=== PATIENT | male | born 2000 | race African-American/Black ===

== ENCOUNTER 2019-02-06 19:14 | Emergency (ER) | payer OTHER ==
--- NOTE | 2019-02-06 20:46 | UC ---
Respiratory Complaint HPI - HPI Summary HPI Summary: Pt presents with c/o sudden onset of nausea and vomiting ~ 1 week ago. Pt reports that he was sleeping and woke up with sudden onset of nausea, left side abdominal pain and vomited X 1 . Pt states he has not been feeling well has pain with inspiratory breath, pain in luq of abdomen, decreased appetite, and continues to vomit at least once a day. Denies injury /trauma to the are, states he is able to keep liquids down but unable to eat food. DAd reports that pt has lost weight and his voice is different from normal. 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 Onset/Duration: Sudden Onset, Lasting Days, Still Present Timing: Constant Severity Initially: Moderate Severity Currently: Moderate Pain Intensity: 4 Aggravating Factors: Deep Breaths Alleviating Factors: Nothing Associated Signs And Symptoms: Positive: Hoarseness - Risk Factors Pulmonary Embolism Risk Factors: Negative Cardiac Risk Factors: Negative Pseudomonas Risk Factors: Negative Tuberculosis Risk Factors: Negative - Allergies/Home Medications Allergies/Adverse Reactions: Allergies Allergy/AdvReac Type Severity Reaction Status Date / Time No Known Allergies Allergy Verified 02/06/19 20:08 Home Medications: Home Medications NK [No Home Medications Reported] 02/06/19 [History Confirmed 02/06/19] PMH/Surg Hx/FS Hx/Imm Hx Previously Healthy: Yes - Surgical History Surgical History: None - Family History Known Family History: Positive: Cardiac Disease - Social History Occupation: Employed Full-time Lives: With Family Alcohol Use: None Substance Use Type: Marijuana Substance Use Comment - Amount & Last Used: 2x daily Smoking Status (MU): Never Smoked Tobacco Have You Smoked in the Last Year: No - Immunization History Vaccination Up to Date: Yes Review of Systems All Other Systems Reviewed And Are Negative: Yes Constitutional: Positive: Negative Skin: Positive: Negative Eyes: Positive: Negative ENT: Positive: Negative Respiratory: Positive: Shortness Of Breath Cardiovascular: Positive: Negative Gastrointestinal: Positive: Abdominal Pain, Vomiting, Nausea Genitourinary: Positive: Negative Motor: Positive: Negative Neurovascular: Positive: Negative Musculoskeletal: Positive: Negative Neurological: Positive: Negative Psychological: Positive: Negative Is Patient Immunocompromised?: No Physical Exam Triage Information Reviewed: Yes Appearance: Ill-Appearing, Pain Distress Vital Signs: Initial Vital Signs Temp 98.5 F 02/06/19 20:01 Pulse 86 02/06/19 20:01 Resp 20 02/06/19 20:01 BP 140/96 02/06/19 20:01 Pulse Ox 100 02/06/19 20:01 Vital Signs Reviewed: Yes Eye Exam: Normal ENT Exam: Normal Dental Exam: Normal Neck exam: Normal Respiratory Exam: Normal Respiratory: Positive: Normal breath sounds Cardiovascular Exam: Normal Abdomen Description: Positive: Other: - c/o pain LUQ, no hernia appreciated Bowel Sounds: Positive: Present Musculoskeletal Exam: Normal Neurological Exam: Normal Psychological Exam: Normal Skin Exam: Normal Respiratory Course/Dx - Course Course Of Treatment: I reviewed my assessment with Dr. Aguliar and asked for him to discuss transfer to higher level of care by ambulance as pt's father refused ambulance initially. Dr. Aguilar requested a POC fingerstick and pt's blood glucose was 416. I discussed this with the pt and his father and pt and father agreed to be transferred to [facility]. Transfer center at [facility] called, I spoke to DENIZ Camacho and she accepted pt for transfer. Pt was directed to [facility]. - Differential Dx/Diagnosis Differential Diagnosis/HQI/PQRI: Other Provider Diagnosis: DKA (diabetic ketoacidoses), Pneumomediastinum Discharge - Sign-Out/Discharge Documenting (check all that apply): Patient Departure All imaging exams completed and their final reports reviewed: No - Discharge Plan Condition: Stable Disposition: TRANS HIGHER LVL OF CARE FAC Patient Education Materials: Diabetic Ketoacidosis (DC), Chest Pain (ED) Referrals: No Primary Care Phys,NOPCP [Primary Care Provider] - Care [facility] [Outside] - Billing Disposition and Condition Condition: STABLE Disposition: Trans Higher Lvl of Care Fac
[2019-02-06 21:23] VITALS: BP 154/87
[2019-02-06] MEDS ORDERED: NS 0.9% 1000 ML** 1,000 ML IV ONE (21:31)
--- NOTE | 2019-02-07 12:37 | UC ---
- Progress Note Progress Note: CXR reviewd. reviwed case w/ Maria Teresa who treated pt. ? pneumomediastinum initially thought to be artifcat by RAD. pt transferred to [facility]. Course/Dx - Diagnoses Provider Diagnoses: DKA (diabetic ketoacidoses), Pneumomediastinum Discharge - Sign-Out/Discharge Documenting (check all that apply): Post-Discharge Follow Up All imaging exams completed and their final reports reviewed: Yes - Discharge Plan Condition: Stable Disposition: TRANS HIGHER LVL OF CARE FAC Patient Education Materials: Chest Pain (ED), Diabetic Ketoacidosis (DC) Referrals: [facility] [Outside] No Primary Care Phys,NOPCP [Primary Care Provider] - - Billing Disposition and Condition Condition: STABLE Disposition: Trans Higher Lvl of Care Fac
== END 2019-02-06 21:45 | disposition short-term general hospital (02) ==
LOC: UCCORT 19:14
DX: E11.10 Type 2 diabetes mellitus with ketoacidosis without coma (principal); J98.2 Interstitial emphysema
CPT/HCPCS: 71046; 99213; G0463

== ENCOUNTER 2019-04-05 02:10 | Emergency (ER) | payer OTHER ==
--- NOTE | 2019-04-05 02:30 | ED ---
Laceration/Wound HPI - HPI Summary HPI Summary: This patient is a 18 year old male presenting to [facility] with a chief complaint of a traumatic right hand injury. Patient was about to jump in the [place] and hit his hand on an unknown object. Patient reports lacerations to right pointer and middle fingers and says he is unable to move his right thumb. Patient admits to ETOH this evening. The patient rates his pain 8/10 in severity. He states a Hx of IDDM. - History of Current Complaint Stated Complaint: "RT HAND INJURY" PER PT Hx Obtained From: Patient Onset Severity: Moderate Current Severity: Moderate Pain Intensity: 8 Pain Scale Used: 0-10 Numeric - Allergy/Home Medications Allergies/Adverse Reactions: Allergies Allergy/AdvReac Type Severity Reaction Status Date / Time No Known Allergies Allergy Verified 02/06/19 20:08 Home Medications: Home Medications Insulin Glargine,Hum.rec.anlog [Basaglar Kwikpen] 14 unit SC DAILY 04/05/19 [ History Confirmed 04/05/19] Insulin Lispro [Admelog] 100 unit SQ TID WITH MEALS PRN 04/05/19 [History Confirmed 04/05/19] PMH/Surg Hx/FS Hx/Imm Hx Endocrine/Hematology History: Reports: Hx Diabetes Cardiovascular History: Denies: Hx Coronary Artery Disease Infectious Disease History: No Infectious Disease History: Denies: Traveled Outside the [place] in Last 30 Days - Family History Known Family History: Positive: Cardiac Disease - Social History Alcohol Use: Occasionally Substance Use Type: Reports: Marijuana Substance Use Comment - Amount & Last Used: 2x daily Smoking Status (MU): Never Smoked Tobacco Have You Smoked in the Last Year: No Review of Systems Positive: Other - Right hand pain Positive: Other - Lacerations to right hand All Other Systems Reviewed And Are Negative: Yes Physical Exam - Summary Physical Exam Summary: VITAL SIGNS: Reviewed. GENERAL: Patient is a well-developed and nourished MALE who is lying comfortable in the stretcher. Patient is not in any acute respiratory distress. HEAD AND FACE: No signs of trauma. No ecchymosis, hematomas or skull depressions. No sinus tenderness. EYES: PERRLA, EOMI x 2, No injected conjunctiva, no nystagmus. EARS: Hearing grossly intact. Ear canals and tympanic membranes are within normal limits. MOUTH: Oropharynx within normal limits. NECK: Supple, trachea is midline, no adenopathy, no JVD, no carotid bruit, no c- spine tenderness, neck with full ROM. CHEST: Symmetric, no tenderness at palpation LUNGS: Clear to auscultation bilaterally. No wheezing or crackles. CVS: Regular rate and rhythm, S1 and S2 present, no murmurs or gallops appreciated. ABDOMEN: Soft, non-tender. No signs of distention. No rebound no guarding, and no masses palpated. Bowel sounds are normal. EXTREMITIES: FROM in all major joints, no edema, no cyanosis or clubbing. NEURO: Alert and oriented x 3. No acute neurological deficits. Speech is normal and follows commands. SKIN: Dry and warm. 1 cm laceration over the dorsal right index finger. Small laceration 0.5 cm over the right right side of the middle finger. Triage Information Reviewed: Yes Vital Signs On Initial Exam: Initial Vitals Temp Pulse Resp BP Pulse Ox 98.0 F 90 18 116/93 95 04/05/19 02:13 04/05/19 02:13 04/05/19 02:13 04/05/19 02:13 04/05/19 02:13 Vital Signs Reviewed: Yes Procedures - Laceration/Wound Repair 1 Location: upper extremity Anesthesia: Digital Length, Depth and Shape: 1 cm Laceration/Wound Explored: clean Suture Type: Nylon Number of Sutures: 3 2 Location: upper extremity Length, Depth and Shape: 0.5 cm over right third digit. Closure: Skin Adhesive - DermaBond Diagnostics - Vital Signs Vital Signs Temp Pulse Resp BP Pulse Ox 04/05/19 02:13 98.0 F 90 18 116/93 95 - Laboratory Lab Statement: Any lab studies that have been ordered have been reviewed, and results considered in the medical decision making process. Laceration Repair Course/Dx - Course Course Of Treatment: This patient is a 18 year old male presenting to [facility] with a chief complaint of a traumatic right hand injury. Physical exam was remarkable for a 1 cm laceration over the dorsal right 2nd digit on the right hand. Small laceration 0.5 cm with right side of the right third digit on the right hand. 3 nylon stitches were used to suture the right 2nd digit, Dermabond skin adhesive was used to close the right third digit. The patient will be discharged with instructions to get stitches removed in 10 days. This plan was discussed with the patient and he was agreeable with this plan. - Clinical Impression Provider Diagnoses: Finger laceration Discharge - Sign-Out/Discharge Documenting (check all that apply): Patient Departure - Discharge Patient Received Moderate/Deep Sedation with Procedure: No - Discharge Plan Condition: Stable Disposition: HOME Patient Education Materials: Finger Laceration (ED) Referrals: [facility] [Outside] Additional Instructions: Get stitches removed in 10 days. Return to ED with any new or worsening symptoms. - Attestation Statements Document Initiated by Scribe: Yes Documenting Scribe: Chico Verdugo Provider For Whom Scribe is Documenting (Include Credential): Robert Alamo MD Scribe Attestation: [place], scribed for Robert Alamo MD on 04/05/19 at 0341. Status of Scribe Document: Ready
[2019-04-05] MEDS ORDERED: Lidocaine 2% EPI 1:200000 MPF* 10 ML VIAL INJ ONE (02:48)
[2019-04-05] MEDS ORDERED: Lidocaine 2% MPF* 2 ML VIAL ONE (03:03)
[2019-04-05] MEDS ORDERED: Ciprofloxacin TAB* 500 MG PO ONE (03:41)
[2019-04-05 04:02] VITALS: BP 129/61
== END 2019-04-05 04:00 | disposition home or self-care (01) ==
LOC: ED 02:10
DX: S61.210A Laceration without foreign body of right index finger without damage to nail, initial encounter (principal); S61.212A Laceration without foreign body of right middle finger without damage to nail, initial encounter; W22.8XXA Striking against or struck by other objects, initial encounter; Y93.14 Activity, water aerobics and water exercise; Y92.838 Other recreation area as the place of occurrence of the external cause; Y99.8 Other external cause status; E10.9 Type 1 diabetes mellitus without complications; Z79.4 Long term (current) use of insulin
CPT/HCPCS: 12001; 96374; 96375; 99282; A9270-GY